=== PATIENT | male | born 1980 | race African-American/Black ===

== ENCOUNTER 2023-02-23 18:59 | Emergency (ER) | payer MEDICAID ==
[~2023-02-23 18:59] MED LIST: DOXY-CAPS100 MG PO
[2023-02-23] MEDS ORDERED: VOLTAREN - GENE75 MG PO (21:34)
[2023-02-23 21:41] VITALS: BP 109/71
== END 2023-02-23 21:47 | disposition home or self-care (01) ==
LOC: ED 18:59
DX: S40.211A Abrasion of right shoulder, initial encounter (principal); S40.011A Contusion of right shoulder, initial encounter; S46.911A Strain of unspecified muscle, fascia and tendon at shoulder and upper arm level, right arm, initial encounter; S00.411A Abrasion of right ear, initial encounter; S00.81XA Abrasion of other part of head, initial encounter; V18.0XXA Pedal cycle driver injured in noncollision transport accident in nontraffic accident, initial encounter; Y93.55 Activity, bike riding; Y92.9 Unspecified place or not applicable